=== PATIENT | female | born 1960 | race Caucasian/White ===

== ENCOUNTER 2021-08-28 00:09 | Observation (INO) | payer SELFPAY ==
[2021-08-28] VITALS (18 sets, daily range): BP systolic 117–174; BP diastolic 56–106
[~2021-08-28] VITALS: Ht 157.5 cm; Wt 113.0 kg
--- NOTE | 2021-08-28 00:20 | NUR ---
PT MOVED TO ROOM 12 VIA WHEELCHAIR FOR TRIAGE AND EVAL. PT HAS RIGHT SIDE FACIAL DROOP AND RIGHT EYE PAIN, PHYSICIAN NOTIFIED IMMEDIATELY. CODE STROKE CALLED.
[2021-08-28 00:37] LABS: HEMATOCRIT 49.3 % (37.0-47.0); HEMOGLOBIN 15.7 g/dl (12.0-16.0); IMMATURE GRANULOCYTES 0.1 % (0.0-5.0); MEAN CORPUSCULAR HGB 29.3 pG CALC (26.0-32.0); MEAN CORPUSCULAR HGB CONC 31.8 g/dL CAL (32.0-36.0); NEUT# 5.34 thou/uL (2.00-7.15); RED BLOOD COUNT 5.36 mill/uL (4.20-5.60); RED CELL DISTRI WIDTH 13.1 % (11.5-15.5)
[2021-08-28 00:58] LABS: ALBUMIN 4.9 g/dL (3.2-5.0); ALKALINE PHOSPHATASE 131 u/l (38-126); ANION GAP 14 (6-22 (CALC)); BILIRUBIN, TOTAL 0.6 mg/dL (0.0-1.4); BUN 19 mg/dL (8-23); BUN/CREATININE RATIO 22 (12-20 (CALC)); CARBON DIOXIDE 28 mmol/l (22-30); CHLORIDE 104 mmol/l (95-108); CREATININE 0.8 mg/dL (0.5-1.0); GFR > 60 ML/MIN (>=60 (CALC)); GFR FOR AFR.AMER. > 60 ML/MIN (>=60 (CALC)); POTASSIUM 4.1 mmol/l (3.5-5.1); SGOT/AST 42 u/l (9-36); SODIUM 142 mmol/l (137-146); TOTAL PROTEIN 8.8 g/dL (6.3-8.2)
[2021-08-28 01:01] LABS: ACT PARTIAL THROMBO TIME 23.2 SECONDS (20.0-32.5); INTERNATIONAL NORMALIZED RATIO 0.9 RATIO (0.7-1.3); PROTHROMBIN TIME 9.1 SECONDS (9.0-12.5)
[2021-08-28] MEDS ORDERED: MELOXICAM7.5 MG PO (01:10)
[2021-08-28] MEDS ORDERED: NORTRIPTYLIN25 MG PO (01:11)
[2021-08-28] MEDS ORDERED: LEVOTHYROXIN50 MCG PO (01:12)
[2021-08-28] MEDS ORDERED: CALCIUM500 M5 PO (01:13)
[2021-08-28] MEDS ORDERED: BACLOFEN10 MG PO (01:13)
[2021-08-28] MEDS ORDERED: CO Q-10200 M1 PO (01:14)
[2021-08-28] MEDS ORDERED: MAGNESIUM400 M1 PO (01:15)
[2021-08-28] MEDS ORDERED: OMEPRAZOLE20 MG PO (01:16)
--- NOTE | 2021-08-28 01:20 | NUR ---
Reassessment of patient completed. No distress noted. SPOUSE AT BEDSIDE.
--- NOTE | 2021-08-28 01:33 | NUR ---
Reassessment of patient completed. No distress noted.
[2021-08-28 02:22] LABS: URINE BILIRUBIN - DIPSTICK NEGATIVE (NEGATIVE); URINE BLOOD DIPSTICK NEGATIVE (NEGATIVE); URINE COLOR YELLOW; URINE GLUCOSE - DIPSTICK 100 mg/dL (NEGATIVE); URINE KETONE NEGATIVE (NEGATIVE); URINE LEUK ESTERASE NEGATIVE (NEGATIVE); URINE PH 5.5 (4.5-8.0); URINE PROTEIN - DIPSTICK NEGATIVE (NEG-TRACE); URINE UROBILINOGEN - DIPSTICK 0.2 E.U./dL (0.2)
[2021-08-28 02:29] LABS: URINE NITRITE - DIPSTICK NEGATIVE (Negative)
--- NOTE | 2021-08-28 02:35 | NUR ---
Reassessment of patient completed. No distress noted. PT RETURNED TO BED FROM BR. URINE SPECIMEN COLLECTED.
--- NOTE | 2021-08-28 03:08 | NUR ---
RECEIVED REPORT FROM MICH OWEN.
--- NOTE | 2021-08-28 03:23 | NUR ---
RECEIVED PATIENT TO ROOM 260 VIA W/C FROM THE ED ESCORTED BY MICH OWEN IN STABLE CONDITION. ORIENTED TO ROOM AND CALLLIGHT SYSTEM. VAD RAC S/L. PATCH TO RIGHT EYE DUE TO INABILITY TO CLOSE COMPLETELY. PATIENT HAS A RIGHT SIDE FACIAL DROOP. ON TELEMETRY. HR REG. ALERT AND ORIENTED X3. PAIN TO BACK AND RIGHT EYE 5/10. DOES NOT WANT PAIN MEDICATION AT THIS TIME. ADMISSION PAPERWORK COMPLETED AND CHARTED. BED IN LOW POSITION. CALL LIGHT WITHIN REACH.
--- NOTE | 2021-08-28 03:27 | NUR ---
Admission Note Report Given to: SIMBA OWEN Transported by: X Wheelchair Stretcher Transported with: X Nurse Transporter X Patent IV [id number] Pellet Press Operator Location: ICU X [facility]
--- NOTE | 2021-08-28 05:15 | NUR ---
RESTING QUIETLY. NO COMPLAINTS.
--- NOTE | 2021-08-28 06:43 | NUR ---
RESTING QUIETLY. NO COMPLAINTS.
--- NOTE | 2021-08-28 07:15 | NUR ---
PATIENT LAYING IN BED AT THIS TIME ALERT AND ORIENTED X 3. PATIENT DENIES ANY PAIN CURRENTLY. BATTERY ASSEMBLER DONE SEE INTERVENTIONS. NEURO CHECK PREFORM AND SHOW NO DEFICITS AT THIS TIME. PATIENT HAS A RIGHT EYE PATCH ON DUE TO EYE LID NOT CLOSING AND PATIENT STATES THIS WAS ONE OF THE REASONS SHE CAME INTO THE HOSPITAL THIS IS NEW TO HER. PATIENT DOES HAVE A SLIGHT DROPPING OF RIGHT SIDE OF FACE BUT DENIES ANY NUMBNESS IN THAT AREA. LUNG SIDDIQI ARE CLEAR AT THIS TIME. AND SPO2 ON ROOM AIR IS 93%. SIDERAILS ARE UP CALL LIGHT WITHIN REACH. TELE MONITOR ON AND BEING MONITORED BY ED. WILL CONTINUE TO MONITOR.
--- NOTE | 2021-08-28 07:17 | NUR ---
PT CONSENTED TO RECEIVE PNEUMONIA VACCINE. HOWEVER, BASED ON AGE AND COMORBIDITIES, PT IS NOT A CANDIDATE AT THIS TIME.
--- NOTE | 2021-08-28 07:58 | NUR ---
REPORT CALLED AT THIS TIME TO BRAYDEN ROBLES PATIENT TO BE IN ICU BED #2 AFTER MRI.
--- NOTE | 2021-08-28 09:00 | NUR ---
PATIENT ARRIVED TO ICU, WENT TO GET AN MRI AND CT OF THE HEAD FOR ANY ACTIVE BLEEDING. WAITING RESULTS. PATIENT IS A/O X3. NEGATIVE NEURO CHECKS. 3MM PERRLA BRISK BILATERALLY. RIGHT EYE HAS AN EYE PATCH ON IT, PATIENT STATED THAT HER RIGHT EYE LID DOESNT CLOSE. THE PATCH HELPS KEEP IN CLOSE. ABLE TO TRACE MY FINGER. NO ISSUES. RIGHT EYE DROOP. CLEAR LUNG SOUNDS THROUGHOUT. STRONG AND EQUAL HAND BOBTAIL DRIVER. RUNNING SINUS TACH ON MONITOR SHE STATED SHE RUNS NORMALLY TACHY. BP WAS ELEVATED, SHE STATED THAT IS HIGH FOR HER. NO COMPLAINTS OF PAIN OR DISCOMFORT. DENIES HEADACHE. REMAINS BEDRESTED UNTIL DOCTOR STATES SHE IS ABLE TO GET UP. OBESE, SOFT NON TENDER ABDOMEN. NO EDEMA PRESENT AT THIS TIME. STRONG PULSES. SHE WALKED FROM WHEELCHAIR TO BED, STABLE. NO ISSUES DENIES DIZZINESS. SAFETY MEASURES IN PLACE. CALL LIGHT IN REACH. WILL CONTINUE TO MONITOR PER HOSPITAL'S POLICY.
--- NOTE | 2021-08-28 12:00 | NUR ---
PATIENT IS SITTING UP EATING LUNCH
--- NOTE | 2021-08-28 15:00 | NUR ---
PATIENT HAS AT BEDSIDE
--- NOTE | 2021-08-28 16:00 | NUR ---
PATIENT IS RELAXED IN BED.
--- NOTE | 2021-08-28 19:30 | NUR ---
ASSESSMENT COMPLETED AT THIS TIME. NEURO'S INTACT, EQUAL AUDIT CLERKS SUPERVISOR, NON-DRIFT IN BLE AND BUE. FACIAL DROOP DISCRIBED BY DAY NURSE STILL VISIBLE IN SMILE TO R.SIDE OF FACE AND EYE-BROW RAISE. PT REMOVED GAUZE TO R.EYE FOR PUPIL ASSESSMENT, REACTIVE PUPIL 3MM IN R.EYE. NO APPARENT SPEECH ISSUES, CLEAR SPEECH AT THIS TIME. PT AMBULATED TO RESTROOM AND BACK TO THE BED. MONITOR REPLACED AT THIS TIME.
--- NOTE | 2021-08-28 20:00 | NUR ---
PT MEDICATED ORDERS PROVIDE AND POC DISCUSSED. PT ASKED FOR RESULTS OF SCANS PERFORMED EARLIER IN THE DAY. I ADVISED HER THAT THE PHYSICIAN WOULD BE IN FIRST THING IN THE MORNING TO REVIEW FINDINGS, BUT THAT I WAS TOLD ON REPORT THAT ALL SCANS WERE NEG SO FAR. VERBALIZED UNDERSTANDING. PT ASKED FOR EYE DROPS IF AVAILABLE TO HELP WITH DRY EYE. HER R.EYE IS COVERED WITH GAUZE AND TAPE FOR COMFORT DUE TO THE RIGHT EYE NOT CLOSING PROPERLY.
--- NOTE | 2021-08-28 20:39 | NUR ---
PT ASKING FOR EYE DROPS FOR DRY EYE THEY PROVIDED IN ED. NEW ORDER RECEIVED. WILL APPLY WHEN AVAILABLE FROM PHARMACY.
--- NOTE | 2021-08-28 21:19 | NUR ---
PT MEDICATED WITH EYE DROPS FOR COMFORT AND NEW GAUZE PATCH PLACED. ASSISTED PT TO RESTROOM AND BACK TO THE BED. REATTACHED TO MONITORS AND LIGHTS TURNED OFF.
--- NOTE | 2021-08-28 22:15 | NUR ---
PT APPEARS TO BE WATCHING TV, NO S/O DISTRESS NOTED AT THIS TIME. CALL LIGHT IS AT SIDE.
--- NOTE | 2021-08-28 23:16 | NUR ---
PT APPEARS TO BE SLEEPING AT THIS TIME. TV IS OFF. RESP EVEN AND NON-LABORED. CALL LIGHT AT SIDE.
--- NOTE | 2021-08-28 23:40 | NUR ---
SOUND HEARD FROM THE PT'S ROOM, UPON CHECKING ON HER, SHE WAS AWAKE AND REPOSITIONING IN THE BED. WHEN ASKED IF HAD ANY NEEDS OF ASSISTANCE, SHE ASKED FOR SNACK/PROVIDED. DENIES ANY OTHER NEEDS. CALL LIGHT IS AT SIDE W/IN REACH.
[2021-08-29] VITALS (10 sets, daily range): BP systolic 132–160; BP diastolic 67–84
--- NOTE | 2021-08-29 01:23 | NUR ---
PT CALLED ASKING FOR ADDITIONAL BLANKET, PROVIDED. NO S/O DISTRESS NOTED. PT CALLED USING CALL LIGHT.
--- NOTE | 2021-08-29 03:10 | NUR ---
PT APPEARS TO BE SLEEPING, RESP EVEN AND NON-LABORED. NO S/O DISTRESS NOTED AT THIS TIME.
--- NOTE | 2021-08-29 05:57 | NUR ---
PT MEDICATED ORDERS PROVIDE. PT ALSO ASSISTED TO RESTROOM AND BACK TO THE BED. NEURO'S APPEAR INTACT OTHER THAN R.FACIAL WEAKNESS. PT DENIES ANY NEW SYMPTOMS OR DIZZINESS. NO DIFFICULTIES WITH AMBULATION OR SPEECH.
--- NOTE | 2021-08-29 08:00 | NUR ---
PATIENT IS A/OX3, ABLE TO MAKE NEEDS KNOWN TO STAFF. DENIES PAIN AT THIS TIME. STILL HAS EYE PATCH ON HER RIGHT EYE. 3MM PERRLA BRISK BILATERAL EYES. NORMAL HEART SOUNDS, SINUS TACH HEART RATE 101 PER MONITOR. CLEAR LUNG SOUNDS THROUGHOUT. ROOM AIR. ABDOMEN OBESE, NON TENDER, ACTIVE BOWEL SOUNDS. NO EDEMA PRESENT AT THIS TIME. STRONG PULSES. 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 NO ARM OR LEG DRIFTS. SAFETY MEASURES IN PLACE . CALL LIGHT IN REACH. WILL COTNINUE TO MONITOR PER HOSPITAL'S POLICY.
[2021-08-29] MEDS ORDERED: VALTREX500 MG PO (09:51)
[2021-08-29] MEDS ORDERED: PREDNISONE20 MG PO (09:52)
--- NOTE | 2021-08-29 10:00 | NUR ---
PATIENT GAVE HERSELF A SPONGE BATH, BRUSHED HER TEETH EARLIER. SHE IS NOW SITTING UP IN BED READING HER BOOK.
--- NOTE | 2021-08-29 12:00 | NUR ---
D/C INSTRUCTIONS PROVIDED, PATIENT STATED SHE UNDERSTOOD. SIGNED OFF D/C FORM. STABLE CONDITION. IS DOWNSTAIRS WAITING FOR PATIENT. THE AIDE WILL ASSIST HER DOWNSTAIRS.
== END 2021-08-29 12:30 | disposition home or self-care (01) | DRG 74 ==
LOC: ED 00:09 → ED-I 01:42 → ED 01:54 → MS2 01:55 → ICU 09:00
PROVIDERS: Family Medicine; ADMIT Internal Medicine; ATTEND Internal Medicine
DX: G51.0 Bell's palsy (principal); E03.9 Hypothyroidism, unspecified; M54.50 Low back pain, unspecified; G89.29 Other chronic pain; R90.89 Other abnormal findings on diagnostic imaging of central nervous system; Z87.891 Personal history of nicotine dependence; Z23 Encounter for immunization
CPT/HCPCS: J1650; Q9967

== ENCOUNTER 2022-10-22 17:28 | Emergency (ER) | payer OTHER ==
[2022-10-22] VITALS (7 sets, daily range): BP systolic 127–149; BP diastolic 65–77
[~2022-10-22] VITALS: Ht 157.5 cm; Wt 109.0 kg
[~2022-10-22 17:28] MED LIST: BACLOFEN10 MG PO; CALCIUM500 M5 PO; CO Q-10200 M1 PO; LEVOTHYROXIN50 MCG PO; MAGNESIUM400 M1 PO; MELOXICAM7.5 MG PO; NORTRIPTYLIN25 MG PO; OMEPRAZOLE20 MG PO; PREDNISONE20 MG PO; VALTREX500 MG PO
[2022-10-22 18:27] LABS: HEMATOCRIT 45.8 % (37.0-47.0); HEMOGLOBIN 14.9 g/dl (12.0-16.0); IMMATURE GRANULOCYTES 0.1 % (0.0-5.0); MEAN CELL VOLUME 91.1 fL CALC (80.0-100.0); MEAN CORPUSCULAR HGB 29.6 pG CALC (26.0-32.0); MEAN CORPUSCULAR HGB CONC 32.5 g/dL CAL (32.0-36.0); NEUT# 4.49 thou/uL (2.00-7.15); RED BLOOD COUNT 5.03 mill/uL (4.20-5.60); RED CELL DISTRI WIDTH 12.9 % (11.5-15.5)
[2022-10-22 18:39] LABS: ALBUMIN 4.3 g/dL (3.2-5.0); ALKALINE PHOSPHATASE 105 u/l (38-126); ANION GAP 12 (6-22 (CALC)); BILIRUBIN, TOTAL 0.4 mg/dL (0.0-1.4); BUN 18 mg/dL (8-23); BUN/CREATININE RATIO 21 (12-20 (CALC)); CARBON DIOXIDE 27 mmol/l (22-30); CHLORIDE 105 mmol/l (95-108); CREATININE 0.9 mg/dL (0.5-1.0); GFR FOR AFR.AMER. > 60 ML/MIN (>=60 (CALC)); GFR OTHER RACES > 60 ML/MIN (>=60 (CALC)); LIPASE 77 u/l (23-300); POTASSIUM 3.8 mmol/l (3.5-5.1); SGOT/AST 30 u/l (9-36); SODIUM 140 mmol/l (137-146); TOTAL PROTEIN 7.3 g/dL (6.3-8.2)
[2022-10-22] MEDS ORDERED: HYDROCO/APAP1 TA9 PO (20:27)
[2022-10-22] MEDS ORDERED: ONDANSETRON4 MG PO (20:27)
== END 2022-10-22 21:15 | disposition home or self-care (01) | DRG 392 ==
LOC: ED 17:28
PROVIDERS: Family Medicine
DX: R10.9 Unspecified abdominal pain (principal)
CPT/HCPCS: Q9967